=== PATIENT | female | born 1985 | race Two or more races ===

== ENCOUNTER 2022-04-11 14:00 | Inpatient (IN) | payer OTHER ==
[~2022-04-11] VITALS: Ht 167.6 cm; Wt 78.9 kg
[2022-04-28] MEDS ORDERED: PRENATABS FA T1 EACH PO (08:52)
== END 2022-04-30 13:26 | disposition home or self-care (01) | DRG 807 ==
LOC: LDR 04-28 07:06 → OB/GYN 04-29 07:13
PROVIDERS: ADMIT Specialist; ATTEND Specialist
PROC: 10E0XZZ Delivery of Products of Conception, External Approach (ICD-10-PCS; principal; 2022-04-28)
PROC: 0HQ9XZZ Repair Perineum Skin, External Approach (ICD-10-PCS; 2022-04-28)
PROC: 4A1HXCZ Monitoring of Products of Conception, Cardiac Rate, External Approach (ICD-10-PCS; 2022-04-28)
DX: O70.0 First degree perineal laceration during delivery (principal); Z37.0 Single live birth; Z3A.39 39 weeks gestation of pregnancy; Z20.822 Contact with and (suspected) exposure to COVID-19